=== PATIENT | female | born 1960 | race Caucasian/White ===

== ENCOUNTER 2023-09-20 15:17 | Emergency (ER) | payer MEDICARE, SELFPAY ==
[2023-09-20] VITALS (37 sets, daily range): BP systolic 113–140; BP diastolic 62–127; PULSE 56–86; RESP 11–21; TEMP 36.9; O2SAT 94–100; BMI 24.3
--- NOTE | 2023-09-20 15:27 | CRLHL7_ITS ---
For Patients: As a result of the Cures Act, medical imaging exams and procedure reports are released immediately into your electronic medical record. You may view this report before your referring provider. If you have questions, please contact your health care provider. Indication: Right ankle injury. Technique: Right ankle 2 views. Comparison: None. Findings/Impression: Acute trimalleolar fracture with displacement and angulation of fracture fragments. Also subluxation of the ankle joint. Dictated by Alan Everett MD @ 09/20/2023 4:29:16 PM (Electronically Signed)
--- NOTE | 2023-09-20 15:50 | W.ED.CHARTNO ---
ED Chart Note Chart Note Details Date: 09/20/23 Details: I was present to provide propofol fall for conscious sedation for this patient. Please see Dr. Dunne note for procedure for the ankle fracture reduction/dislocation. Patient was on appropriate cardiac monitoring, oxygen and pulse oximetry. A total of 80 mg propofol was used. Patient had good anesthesia, was monitored appropriately post conscious sedation. No complications were noted.
--- NOTE | 2023-09-20 15:52 | CRLHL7_ITS ---
For Patients: As a result of the Century Cures Act, medical imaging exams and procedure reports are released immediately into your electronic medical record. You may view this report before your referring provider. If you have questions, please contact your health care provider. Indication: Postreduction. Technique: Right ankle 3 views. Comparison: None. Findings/Impression: Postreduction images demonstrate the trimalleolar fractures and ankle mortise to be in satisfactory alignment. No new abnormality. Dictated by Alan Everett MD @ 09/20/2023 4:53:27 PM (Electronically Signed)
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
[2023-09-20] MEDS: PROPOFOL 10 MG/ML INJ 200 MG IVP (16:04)
[2023-09-20] MEDS: HYDROmorphone 0.5 mg/0.5 ml inj IVP (16:12)
== END 2023-09-20 17:57 | disposition home or self-care (01) ==
LOC: ED 17:03
PROVIDERS: Emergency Provider Emergency Medicine
DX: S82.854A Nondisplaced trimalleolar fracture of right lower leg, initial encounter for closed fracture (principal); W01.0XXA Fall on same level from slipping, tripping and stumbling without subsequent striking against object, initial encounter
CPT/HCPCS: 27818; 73600; 73610; 94761; 96374; 99156; 99284; 99291; J1170; J2704